=== PATIENT | male | born 1980 | race Caucasian/White ===

== ENCOUNTER 2019-10-06 17:44 | Emergency (ER) | payer BC ==
[~2019-10-06] VITALS: Ht 185.4 cm; Wt 100.8 kg
[2019-10-06 18:03] VITALS: BP 121/88
[2019-10-06] MEDS ORDERED: LIDOcaine 1% 30ml preserv. free vial IJ ONE (18:25)
[2019-10-06] MEDS ORDERED: ibuprofen 200mg tablet PO ONE (19:15)
== END 2019-10-06 19:53 | disposition home or self-care (01) ==
LOC: ER 17:46
DX: S61.411A Laceration without foreign body of right hand, initial encounter (principal); W23.0XXA Caught, crushed, jammed, or pinched between moving objects, initial encounter; Y93.89 Activity, other specified; Y92.89 Other specified places as the place of occurrence of the external cause; Y99.0 Civilian activity done for income or pay
CPT/HCPCS: 12002; 73130; 99283